=== PATIENT | male | born 1990 | race Two or more races ===

== ENCOUNTER 2024-10-24 13:17 | Emergency (ER) | payer MEDICAID, SELFPAY ==
[2024-10-24 13:37] VITALS: BP 136/92; PULSE 100; RESP 20; TEMP 36.8; O2SAT 96
--- NOTE | 2024-10-24 14:10 | PC.NURSE ---
Pt did not answer when name was called and was not found outside.
--- NOTE | 2024-10-24 14:41 | PC.NURSE ---
Pt did not answer when name was called and was not found outside for the second time.
--- NOTE | 2024-10-24 19:03 | PC.NURSE ---
no answer at er lobby or outside er to be re evaluated.
== END 2024-10-24 21:24 | disposition left against medical advice (07) ==
DX: Z53.21 Procedure and treatment not carried out due to patient leaving prior to being seen by health care provider (principal)
CPT/HCPCS: 99281